=== PATIENT | female | born 1970 | race Caucasian/White ===

== ENCOUNTER 2018-07-14 10:02 | Outpatient (REF) | payer BC, SELFPAY ==
[2018-07-14 22:06] LABS: Anion Gap 9.7 mmol/L (3-11); BUN 14 mg/dL (7-18); CO2 26.3 mmol/L (21.0-32.0); CREATININE 0.92 mg/dL (0.55-1.02); Calcium 8.7 mg/dL (8.5-10.1); Chloride 102 mmol/L (98-107); Glucose 173 mg/dL (70-100); Potassium 3.6 mmol/L (3.5-5.1); Sodium 138 mmol/L (136-145)
[2018-07-14 22:16] LABS: Hemoglobin A1C 6.6 % (4.5-6.2)
== END 2018-07-14 10:22 ==
LOC: NCHCN 10:02
PROVIDERS: PCP Family Medicine; Visit Provider Nurse Practitioner Family
DX: I10 Essential (primary) hypertension (principal); R73.09 Other abnormal glucose
CPT/HCPCS: 80048; 83036

== ENCOUNTER 2019-01-12 10:10 | Outpatient (REF) | payer OTHER, SELFPAY | END 2019-01-12 10:30 | LOC: NCHCN 10:10 | PROVIDERS: PCP Family Medicine; Visit Provider Nurse Practitioner Family | DX: E11.9 Type 2 diabetes mellitus without complications (principal); I10 Essential (primary) hypertension | CPT/HCPCS: 82043; 82570 ==

== ENCOUNTER 2019-09-15 15:22 | Outpatient (REF) | payer OTHER, SELFPAY ==
[2019-09-15 21:24] LABS: Anion Gap 11.8 mmol/L (3-11); BUN 10 mg/dL (7-18); CO2 24.2 mmol/L (21.0-32.0); CREATININE 0.67 mg/dL (0.55-1.02); Chloride 104 mmol/L (98-107); Glucose 100 mg/dL (74-106); Magnesium 1.7 mg/dL (1.8-2.4); Potassium 3.5 mmol/L (3.5-5.1); Sodium 140 mmol/L (136-145); Vitamin B12 607 pg/mL (193-986)
== END 2019-09-15 15:42 ==
LOC: NCHCN 15:22
PROVIDERS: PCP Family Medicine; Visit Provider Nurse Practitioner Family
DX: I10 Essential (primary) hypertension (principal)
CPT/HCPCS: 80048; 82607; 83735

== ENCOUNTER 2020-03-14 15:11 | Outpatient (REF) | payer OTHER, SELFPAY ==
--- NOTE | 2020-03-14 08:30 | PAPFT_PTH ---
PATIENT: Raina Blas LOC: [facility]#:[id number] AGE/SX: 49/F ROOM: RE03/14/[address]: Dory Ma : 1970 BED: DIS: 03/14/2020 SPEC #: [id number] RECD: 03/14/20 18:06 STATUS: ANANDA EMILIANA #: [id number] ZEINA: 03/14/20 08:[address]: Dory Melendez DEPT: [facility] Cytology RECD BY: Gina Torrez ENTERED: 03/14/20 18:06 SP TYPE: PAPFT OTHR DR: Mami Shoemaker Tissues: 1 - CX/ENDOCX FOR PAP SMEARS Procedures: PAP THIN PREP/[facility] Screening HPV DNA PROBE Comments: [id number]
[2020-03-14 14:44] LABS: Microalb ug/mg Crea 4.1 ug/mg Cr
== END 2020-03-14 15:31 ==
LOC: NCHCN 15:11
PROVIDERS: PCP Family Medicine; Visit Provider Nurse Practitioner Family
DX: Z12.4 Encounter for screening for malignant neoplasm of cervix (principal); E11.9 Type 2 diabetes mellitus without complications; I10 Essential (primary) hypertension
CPT/HCPCS: 88142; 82043; 82570; 87624

== ENCOUNTER 2021-08-16 18:29 | Outpatient (REF) | payer OTHER, SELFPAY ==
[2021-08-16 16:14] LABS: COMMENT (LAB VIEW ONLY) 181.68 mg/dL; Microalb ug/mg Crea 7.7 ug/mg Cr
== END 2021-08-16 18:30 | disposition home or self-care (01) ==
LOC: NCHCN 18:29
PROVIDERS: PCP Family Medicine; Visit Provider Registered Nurse
DX: E11.9 Type 2 diabetes mellitus without complications (principal)
CPT/HCPCS: 82043; 82570

== ENCOUNTER 2022-12-03 14:07 | Outpatient (REF) | payer OTHER, SELFPAY ==
[2022-12-03 19:36] LABS: COMMENT (LAB VIEW ONLY) 256.14 mg/dL
== END 2022-12-03 14:08 | disposition home or self-care (01) ==
LOC: NCHCN 14:07
PROVIDERS: PCP Family Medicine; Visit Provider Nurse Practitioner Family
DX: E11.9 Type 2 diabetes mellitus without complications (principal); Z85.3 Personal history of malignant neoplasm of breast; D69.6 Thrombocytopenia, unspecified; K59.09 Other constipation; F32.9 Major depressive disorder, single episode, unspecified; D06.9 Carcinoma in situ of cervix, unspecified
CPT/HCPCS: 82043; 82570

== ENCOUNTER 2022-12-12 10:29 | Outpatient (REF) | payer OTHER, SELFPAY | END 2022-12-12 10:30 | disposition home or self-care (01) | LOC: NCHCN 10:29 | PROVIDERS: PCP Family Medicine; Visit Provider Physician Assistant | DX: B37.2 Candidiasis of skin and nail (principal) | CPT/HCPCS: 87480; 87510; 87660 ==

== ENCOUNTER 2023-06-27 11:53 | Outpatient (REF) | payer OTHER, SELFPAY ==
--- NOTE | 2023-06-27 08:00 | PAPFT_PTH ---
PATIENT: Raina Blas LOC: [facility]#:[id number] AGE/SX: 52/F ROOM: RE06/27/[address]: Dory Ma : 1970 BED: DIS: 06/27/2023 SPEC #: [id number] RECD: 06/27/23 14:12 STATUS: ANANDA HOPSON #: [id number] ZEINA: 06/27/23 08:[address]: Dory Melendez DEPT: [facility] Cytology RECD BY: Gina Torrez ENTERED: 06/27/23 14:13 SP TYPE: PAPFT OTHR DR: Mami Shoemaker Tissues: 1 - CX/ENDOCX FOR PAP SMEARS Procedures: PAP THIN PREP/[facility] Screening HPV DNA PROBE Comments: [id number]
[2023-06-27 16:27] LABS: COMMENT (LAB VIEW ONLY) 298.61 mg/dL; Microalb ug/mg Crea 5.7 ug/mg Cr
== END 2023-06-27 11:54 | disposition home or self-care (01) ==
LOC: NCHCN 11:53
PROVIDERS: PCP Family Medicine; Visit Provider Nurse Practitioner Family
DX: Z00.01 Encounter for general adult medical examination with abnormal findings (principal); E11.319 Type 2 diabetes mellitus with unspecified diabetic retinopathy without macular edema
CPT/HCPCS: 88142; 82043; 82570; 87624

== ENCOUNTER 2024-06-29 12:11 | Outpatient (REF) | payer OTHER, SELFPAY ==
[2024-06-29 16:22] LABS: COMMENT (LAB VIEW ONLY) 294.73 mg/dL; Microalb ug/mg Crea 9.8 ug/mg Cr
== END 2024-06-29 12:12 | disposition home or self-care (01) ==
LOC: NCHCN 12:11
PROVIDERS: PCP Family Medicine; Visit Provider Nurse Practitioner Family
DX: E11.9 Type 2 diabetes mellitus without complications (principal)
CPT/HCPCS: 82043; 82570